=== PATIENT | female | born 1980 | race Caucasian/White ===

== ENCOUNTER → 2016-09-17 | Outpatient (CLI) | payer SELFPAY ==
[2016-09-17 14:09] LABS: CREATININE 0.8 mg/dL (0.5-1.1); ESTIMATED GFR (MDRD EQUATION) > 60
== END | disposition disaster alternative care site (69) ==
LOC: GRAD 09-04 14:00 → GLAB 09-04 14:00 → GRAD 13:00 → GLAB 13:00 → GRAD 13:01
PROVIDERS: Surgery
DX: N64.52 Nipple discharge (principal); R92.2 Inconclusive mammogram; Z98.890 Other specified postprocedural states
CPT/HCPCS: A9577; C8908